=== PATIENT | female | born 1950 | race Caucasian/White ===

== ENCOUNTER 2016-08-26 17:03 | Inpatient (IN) | payer MEDICARE ==
--- NOTE | ~2016-08-26 | PUL ---
[address] [address] NAME: ROXANNE ORNELAS DECEMBER : 52 STATUS : DIS IN PAT#: [id number] AGE: 65 ADM/REG DATE : 08/26/16 MR#: [id number] REPORT SERV DATE: 08/30/16 DICTATED BY: RAE JOHNSON DATE: 08/30/16 REPORT STATUS : Draft TRANSCRIBED BY: MODL DATE: 08/30/16 PULMONARY FUNCTION TEST DIAGNOSIS: COPD. RESULTS: 1. FEV1 of 0.85 L (39% of predicted). 2. FVC 1.94 L (68% of predicted). 3. FEV1/FVC ratio of 44%. IMPRESSION: There is severe obstructive ventilatory impairment. The forced vital capacity is reduced suggestive of restriction. PS/MODL Rae Johnson M.D. / [id number] CC: MD Cora Miranda, CYBER FORENSIC SPECIALIST
--- NOTE | ~2016-08-26 | DS ---
Discharge Summary [facility] [address] [place]. [address] NAME: ROXANNE ORNELAS DECEMBER : 52 STATUS : DIS IN PAT#: [id number] AGE: 65 ADM/REG DATE : 08/26/16 MR#: [id number] REPORT SERV DATE: 08/31/16 DICTATED BY: ROBIN NUNEZ DATE: 08/30/16 REPORT STATUS : Draft TRANSCRIBED BY: MODL DATE: 08/30/16 ADMISSION DATE: 08/26/2016 DISCHARGE DATE: 08/30/2016 CHIEF COMPLAINT ON ADMISSION: Shortness of breath. DISCHARGING DIAGNOSIS: Acute exacerbation of chronic obstructive pulmonary disease with chronic hypoxic respiratory failure, on nocturnal . She is on home O2, I guess. HISTORY OF PRESENT ILLNESS: Please see full H and P by Dr. Jean for details regarding initial presentation. HOSPITAL COURSE: 1. Acute exacerbation of COPD with chronic hypoxic respiratory failure, on nocturnal O2. The patient was admitted to the hospital, was started on initial antibiotics for possible pneumonia; however, imaging did not reveal any pneumonia. She was continued on respiratory regimen including steroids. She has improved to the point she is currently on room air during the day. She does have nocturnal oxygen at home, which was resumed. She will be on steroid taper at discharge and otherwise continue home respiratory regimen and follow up with outpatient primary care. 2. Tobacco abuse. The patient has been counseled on tobacco cessation. DISCHARGE MEDICATIONS: Guaifenesin with codeine p.r.n., guaifenesin 1200 mg p.o. b.i.d., steroid taper, fluoxetine 40 mg daily, Flonase p.r.n., Neurontin 300 mg twice a day, hydrocodone one tab 10/325 four times daily, lisinopril 10 mg daily, Singulair 10 mg daily, omeprazole 20 mg daily, recommend nicotine patch, Seroquel 300 mg at bedtime, Spiriva, Topamax 50 mg at bedtime, diclofenac topical, Breo Ellipta, Phenergan p.r.n., naproxen p.r.n., albuterol p.r.n., and Klonopin p.r.n. DISPOSITION: Home. Resume home oxygen. FOLLOWUP: With outpatient primary care. PERTINENT LABORATORY DATA: At time of discharge, white blood cell count 12.1, hemoglobin 10.8, platelet count of 482. BMP grossly unremarkable. Time spent on this discharge is less than 30 minutes. DNK/MODL Robin Nunez MD Discharge Summary [address] [address] NAME: ROXANNE ORNELAS DECEMBER : 52 STATUS : DIS IN PAT#: [id number] AGE: 65 ADM/REG DATE : 08/26/16 MR#: [id number] REPORT SERV DATE: 08/31/16 DICTATED BY: ROBIN NUNEZ DATE: 08/30/16 REPORT STATUS : Draft TRANSCRIBED BY: MODL DATE: 08/30/16 / [id number] CC: MD Cora Miranda, CUSTOMER PROGRAM MANAGER
--- NOTE | ~2016-08-26 | HP ---
History And Physical [id number] [place]. [address] NAME: ROXANNE ORNELAS DECEMBER : 52 STATUS : ADM IN [facility]#: [id number] AGE: 65 ADM/REG DATE : 08/26/16 MR#: [id number] REPORT SERV DATE: 08/27/16 DICTATED BY: TYRA JEAN DATE: 08/27/16 REPORT STATUS : Draft TRANSCRIBED BY: MODL DATE: 08/27/16 DATE OF ADMISSION: 08/26/2016 CHIEF COMPLAINT: Shortness of breath. HISTORY OF PRESENT ILLNESS: The patient is a 65-year-old female with past medical history of COPD, asthma, hypertension, colitis, reflux, C. diff, anxiety, depression, and O2 dependent but noncompliant who comes in for respiratory difficulties for approximately five days. Upon arrival, the patient was placed in medial on BiPAP with increased O2 requirements and tachypnea. The patient reports symptoms has been constant, moderate in severity, breathing, did not have any resulting chest pain or radiating of symptoms, but did have shortness of breath, wheezing, cough with sputum production. No fever, diarrhea, or chills. The patient does report that she has occasionally been taking her oxygen but not as she is supposed to, still currently smoking. Symptoms are worsened by exertion, relieved only by rest and oxygen. Symptoms have significantly improved after short period of BiPAP and has been able to come down to binasal cannula, but is still having productive cough, sputum. Symptoms also improved with Solu-Medrol breathing treatments. ADDITIONAL REVIEW OF SYSTEMS: A 10-point review of systems negative except that noted in HPI with: CONSTITUTIONAL: No fevers or chills. EYES: No eye pain or visual changes. ENT: No sore throat or congestion. NEURO: No headache or confusion. SKIN: No rashes or bruising. RESPIRATORY: Positive for shortness of breath, cough, sputum, and wheezing. CV: No chest pain or palpitations. GI: No nausea or vomiting. : No dysuria or hematuria. MUSCULOSKELETAL: No myalgias, arthralgias above baseline. ENDO: No fatigue or polyuria. HEME: No bleeding or bruising. IMMUNOLOGIC: No rhinorrhea. PSYCH: No anxiety or confusion. PAST MEDICAL HISTORY: As noted above with C. diff colitis, septicemia, hypertension, COPD, reflux, anxiety, depression, chronic pain, is O2 dependent, but noncompliant. SOCIAL HISTORY: Forty pack year smoking and still continues, rare alcohol, no illicits. SURGERIES: Appendectomy, hysterectomy, right wrist, pelvic laparotomies. ALLERGIES: NSAIDS. FAMILY HISTORY: Colon cancer, lung cancer, COPD. History And Physical [address] [place]. [address] NAME: ROXANNE ORNELAS DECEMBER : 52 STATUS : ADM IN [facility]#: [id number] AGE: 65 ADM/REG DATE : 08/26/16 MR#: [id number] REPORT SERV DATE: 08/27/16 DICTATED BY: TYRA JEAN DATE: 08/27/16 REPORT STATUS : Draft TRANSCRIBED BY: JEREMIAH DATE: 08/27/16 HOME MEDICATIONS: Ventolin, Klonopin, cyproheptadine, Voltaren, Prozac, Flonase, Breo Ellipta, Neurontin, [place], lisinopril, Singulair, Naprosyn, Prilosec, Phenergan, Seroquel, Spiriva, Topamax. PHYSICAL EXAMINATION: VITAL SIGNS: The patient's blood pressure 164/80 temperature 98.1, initial pulse 112 down to 90, respirations initially 35 down to 22, O2 requirements initially on BiPAP up to 6 mm, now down to by nasal cannula. GENERAL: Older than stated age, thin, frail, but now in only mild distress. EYES: No scleral icterus. EOMI. ENT: Nares patent. Tongue midline. RESPIRATORY: Rhonchi diffusely, wheezing diffusely with end-expiratory wheeze. Minimal accessory muscle use at this time. CHEST: Equal chest expansion. Increased AP diameter. CV: Tachycardic, but no rubs or gallops. No pedal edema. GI: Soft, nontender, nondistended. Bowel sounds positive. : Deferred. MUSCULOSKELETAL: Moves all extremities x4. SKIN: Warm and dry. LYMPH: No cervical or supraclavicular lymphadenopathy. HEME: No bleeding or bruising. NEURO: Alert and oriented. Moves all extremities x4. Symmetrical smile. PSYCH: Appropriate mood and affect, pleasant. LABORATORY DATA: Sodium 139, potassium 3.3, bicarb 22, BUN and creatinine 7 and 0.65, chloride 103, glucose 144, magnesium 2.0. LFTs within normal limits. Troponin negative. ABG: A pH 7.41, bicarb 22, pCO2 of 36, PO2 of 83. Portable chest, stable COPD changes, old granulomatous disease. BNP 13.3. WBC 20.4, H and H 12.1 and 37, platelets 596, INR 1.1. EKG: Rate 133, sinus tach with QTc of 480. ASSESSMENT AND PLAN: 1. Acute chronic obstructive pulmonary disease exacerbation with bronchitis. 2. Bronchitis. 3. Systemic inflammatory response syndrome. 4. Hypertension. 5. Anemia. 6. Noncompliance. 7. Clostridium difficile history. 8. Tobacco use. PLAN: 1. For acute COPD exacerbation, O2 DuoNeb, off BiPAP, and now on binasal cannula. Continue steroids, order set for COPD. The patient is supposed to be on O2 at home, but variable compliance educated again about stop smoking. 2. Bronchitis. Antibiotics started in the emergency room. We will change Levaquin to Rocephin and azithromycin due to history of Clostridium difficile. History And Physical [address] [address] NAME: ROXANNE ORNELAS DECEMBER : 52 STATUS : ADM IN [facility]#: [id number] AGE: 65 ADM/REG DATE : 08/26/16 MR#: [id number] REPORT SERV DATE: 08/27/16 DICTATED BY: TYRA JEAN DATE: 08/27/16 REPORT STATUS : Draft TRANSCRIBED BY: MODPadmini DATE: 08/27/16 3. SIRS. We will check procalcitonin sputum, was tachycardic, tachypneic, and does have leukocytosis present. All present on arrival. 4. Hypertension. Continue home medications. 5. Anemia. Monitor, possibly secondary to Naprosyn, monitor next CBC. 6. Noncompliance. Discussed compliance with oxygen and stopping tobacco use. 7. C. diff. No acute diarrhea. Tobacco use and nicotine patch, discussed cessation. All questions answered of the patient at bedside. Guarded prognosis due to presenting illness. DDN/MODL Tyra Jean MD / [id number] CC: MD Cora Sandoval, [employer] JOURNALIST
[2016-08-26 16:16] LABS: BASOPHILS 0.2 %; BASOPHILS ABSOLUTE 0.04 10/3/uL (0.0-0.16); EOSINOPHILS 0 %; EOSINOPHILS ABSOLUTE 0.01 10/3/uL (0.0-0.53); ER CBC TAT 0 Hrs 09 Mins; HEMOGLOBIN 12.1 g/dL (12.0-16.0); IMMATURE GRANULOCYTES 0.3 %; IMMATURE GRANULOCYTES ABSOLUTE 0.06 10/3/uL (0.0-0.11); LYMPHOCYTES 6.5 %; LYMPHOCYTES ABSOLUTE 1.33 10/3/uL (0.67-4.30); MANUAL DIFF NO %; MEAN CORPUS HGB CONC 32.7 g/dL (32.0-36.0); MEAN CORPUSCULAR HEMOGLOB 27.9 pg (26.0-34.0); MEAN CORPUSCULAR VOLUME 85.5 fL (80-100); MEAN PLATELET VOLUME 9.3 fL (9.2-13.0); MONOCYTES ABSOLUTE 1.22 10/3/uL (0.21-1.20); NEUTROPHILS ABSOLUTE 17.75 10/3/uL (2.02-8.40); PLATELET COUNT 596 10/3/uL (150-400); RBC DISTRIBUTION WIDTH 13.2 % (12.0-16.0); RED CELL COUNT 4.33 10/6/uL (4.0-5.6); WHITE BLOOD CELLS 20.4 10/3/uL (4.5-10.5)
[2016-08-26 16:27] LABS: INTERNATIONAL NORMAL RATI 1.1 UNITS (-); PARTIAL THROMBO TIME 33.4 SEC (22.5-37.2); PROTIME (NOT ORD) 14.4 SEC (12.0-14.5)
[2016-08-26 16:33] LABS: BUN (BLOOD UREA NITROGEN) 7 MG/DL (6-23); CALCIUM, SERUM 9.1 MG/DL (8.5-10.4); CHEST PAIN PROFILE TAT 0 Hrs 26 Mins; CHLORIDE, SERUM 103 MMOL/L (96-112); CO2 (CARBON DIOXIDE) 22 MMOL/L (24-34); CREATININE 0.65 MG/DL (0.55-1.02); GFR AFRICAN AMERICAN 109 ML/MIN (>=60); GFR NON AFRICAN AMERICAN 94 ML/MIN (>=60); POTASSIUM, SERUM 3.3 MMOL/L (3.5-5.3); SODIUM, SERUM 139 MMOL/L (135-148); TROPONIN I <0.02 NG/ML (<0.05)
[2016-08-26 16:34] LABS: GLUCOSE, SERUM 144 MG/DL (60-99)
[~2016-08-26 17:03] MED LIST: ALEVE220 MG PO; ASABAYER PO; ASCRIPTIN PO; BREO ELLIPTA 21 EACH INH; BROVANA15 MCG INH; CEFT5 PO; CYPROHEPTAD4 MG PO; DALIRESP500 MCG PO; DULERA PO; FOSAMAX70 MG PO; HUMI PO; IMOD PO; INHALER; KLONO1 PO; KLONO5 PO; KLOR-CON M2020 MEQ PO; LEVAQUIN750 MG PO; LORTAB10 PO; M-END DM PO; MSCONT15 PO; NASONEX NAS; NEUR100 PO; NEUR300 PO; NEXIUM40 PO; NICODERM C21 MG/241 TOP; NORCO1 TAB PO; P20 PO; PR25 PO; PRILO PO; PRIN10 PO; PRIN20 PO; PRIN5 PO; PROTONIX PO; PROVENTSOL INH; PROZAC40 MG PO; RANITIDINE300 MG PO; RESTORIL30 MG PO; SEROQUEL1C PO; SEROQUEL200 MG PO; SEROQUEL25 PO; SEROQUEL50 MG PO; SINGULAIR1 PO; SPIRIVA INH; SPIRIVA RESPIMAT INH; SUCR PO; SYMBICORT 160/41 INH INH; TAMBOCOR PO; TOPAMAX50 MG PO; VENTOLIN HFA INH; VOLT75 PO; VOLTAREN1 % TOP; ZANTAC300 MG PO; ZYRTEC ALLGY10 MG PO
[2016-08-26] MEDS ORDERED: VENTOLIN HFA INH (17:08)
[2016-08-26] MEDS ORDERED: CYPROHEPTAD4 MG PO (17:08)
[2016-08-26] MEDS ORDERED: PROZAC40 MG PO (17:09)
[2016-08-26] MEDS ORDERED: VOLTAREN1 % TOP (17:09)
[2016-08-26] MEDS ORDERED: BREO ELLIPTA 21 EACH INH (17:09)
[2016-08-26] MEDS ORDERED: NORCO1 TAB PO (17:10)
[2016-08-26] MEDS ORDERED: NEUR300 PO (17:10)
[2016-08-26] MEDS ORDERED: PR25 PO (17:10)
[2016-08-26] MEDS ORDERED: ZESTRIL10 MG PO (17:10)
[2016-08-26] MEDS ORDERED: TOPAMAX50 MG PO (17:11)
[2016-08-26] MEDS ORDERED: SEROQUEL200 MG PO (17:11)
[2016-08-26] MEDS ORDERED: PRILO PO (17:11)
[2016-08-26] MEDS ORDERED: SPIRIVA (17:11)
[2016-08-26] MEDS ORDERED: SINGULAIR1 PO (17:11)
[2016-08-26] MEDS ORDERED: NAP500 PO (17:12)
[2016-08-26] MEDS ORDERED: FLONASE NAS (17:12)
[2016-08-26] MEDS ORDERED: KLONO1 PO (17:13)
[2016-08-26 17:14] LABS: ALLENS TEST Pos; BE (BASE EXCESS) -2.2 MEQ/L (0 +/- 2.5); DEVICE NC; HEMOBLOGIN CONTENT 12.3 G/DL (12-16); INSTRUMENT SERIAL # 8087; METHEMOGLOBIN 0.1 % (0-3); O2 CONTENT 16.6 VOL% (18-24); OPERATOR ID 32214; PCO2 (CO2 TENSION) 36 MMHG (35-45); PO2 (O2 TENSION) 83 MMHG (79-93); SAMPLE Arterial; pH 7.41 (7.37-7.43)
[2016-08-26 20:58] LABS: ALBUMIN 3.2 G/DL (3.5-5.0); SGPT(ALT) 24 U/L (5-65); TOTAL BILIRUBIN 0.2 MG/DL (0-1.2)
[2016-08-26 21:00] LABS: A/G RATIO 0.7 (0.7-1.9); ALKALINE PHOSPHATASE 116 U/L (45-117); GLOBULIN 4.8 G/DL (2.5-4.1); SGOT(AST) 20 U/L (5-40)
[2016-08-27 01:03] LABS: INFLUENZA A SCREEN NEGATIVE (NEGATIVE); INFLUENZA B SCREEN NEGATIVE (NEGATIVE)
[2016-08-27 07:41] LABS: BASOPHILS 0.1 %; BASOPHILS ABSOLUTE 0.01 10/3/uL (0.0-0.16); EOSINOPHILS 0 %; HEMOGLOBIN 10.7 g/dL (12.0-16.0); IMMATURE GRANULOCYTES 0.3 %; IMMATURE GRANULOCYTES ABSOLUTE 0.05 10/3/uL (0.0-0.11); LYMPHOCYTES 8.7 %; LYMPHOCYTES ABSOLUTE 1.25 10/3/uL (0.67-4.30); MEAN CORPUS HGB CONC 32.5 g/dL (32.0-36.0); MEAN CORPUSCULAR HEMOGLOB 27.2 pg (26.0-34.0); MEAN CORPUSCULAR VOLUME 83.7 fL (80-100); MEAN PLATELET VOLUME 9.5 fL (9.2-13.0); MONOCYTES 2.5 %; MONOCYTES ABSOLUTE 0.36 10/3/uL (0.21-1.20); NEUTROPHILS 88.4 %; NEUTROPHILS ABSOLUTE 12.71 10/3/uL (2.02-8.40); PLATELET COUNT 537 10/3/uL (150-400); RBC DISTRIBUTION WIDTH 13.5 % (12.0-16.0); RED CELL COUNT 3.93 10/6/uL (4.0-5.6); WHITE BLOOD CELLS 14.4 10/3/uL (4.5-10.5)
[2016-08-27 07:42] LABS: HEMATOCRIT 32.9 % (36.0-48.0); MANUAL DIFF NO %
[2016-08-27 07:53] LABS: BUN (BLOOD UREA NITROGEN) 9 MG/DL (6-23); CALCIUM, SERUM 8.8 MG/DL (8.5-10.4); CHLORIDE, SERUM 109 MMOL/L (96-112); CO2 (CARBON DIOXIDE) 21 MMOL/L (24-34); CREATININE 0.51 MG/DL (0.55-1.02); GFR AFRICAN AMERICAN 118 ML/MIN (>=60); GFR NON AFRICAN AMERICAN 102 ML/MIN (>=60); GLUCOSE, SERUM 129 MG/DL (60-99); POTASSIUM, SERUM 4.6 MMOL/L (3.5-5.3); SODIUM, SERUM 141 MMOL/L (135-148); TROPONIN I <0.02 NG/ML (<0.05)
[2016-08-27 14:20] LABS: ASCORBIC ACID (UR NOT ORDER) NEG (NEG); BILIRUBIN, URINE NEGATIVE (NEG); KETONE, URINE NEGATIVE (NEG); LEUKOCYTE ESTERASE(NOT OR NEG (NEG); WBC (NOT ORDERED) (RFLEX) < 1 (0-5)
[2016-08-28 04:47] LABS: INSTRUMENT SERIAL # 8083
[2016-08-28 04:48] LABS: BE (BASE EXCESS) -1.1 MEQ/L (0 +/- 2.5); CARBOXYHEMOGLOBIN 0.2 % (0-3); DEVICE NRB; HCO3 (ACTUAL BICARBONATE) 24.5 MEQ/L (23-27); HEMOBLOGIN CONTENT 12.9 G/DL (12-16); METHEMOGLOBIN 0.3 % (0-3); OPERATOR ID 30013; PCO2 (CO2 TENSION) 45 MMHG (35-45); PO2 (O2 TENSION) 131 MMHG (79-93); SAMPLE Arterial; pH 7.36 (7.37-7.43)
[2016-08-28 07:34] LABS: BASOPHILS 0.2 %; BASOPHILS ABSOLUTE 0.03 10/3/uL (0.0-0.16); EOSINOPHILS 0.1 %; EOSINOPHILS ABSOLUTE 0.02 10/3/uL (0.0-0.53); HEMATOCRIT 33.5 % (36.0-48.0); HEMOGLOBIN 10.5 g/dL (12.0-16.0); IMMATURE GRANULOCYTES 0.5 %; IMMATURE GRANULOCYTES ABSOLUTE 0.09 10/3/uL (0.0-0.11); MEAN CORPUS HGB CONC 31.3 g/dL (32.0-36.0); MEAN CORPUSCULAR HEMOGLOB 27.1 pg (26.0-34.0); MEAN PLATELET VOLUME 9.3 fL (9.2-13.0); MONOCYTES 6.1 %; MONOCYTES ABSOLUTE 1.06 10/3/uL (0.21-1.20); NEUTROPHILS 70.1 %; NEUTROPHILS ABSOLUTE 12.17 10/3/uL (2.02-8.40); PLATELET COUNT 543 10/3/uL (150-400); RBC DISTRIBUTION WIDTH 13.6 % (12.0-16.0); RED CELL COUNT 3.88 10/6/uL (4.0-5.6); WHITE BLOOD CELLS 17.4 10/3/uL (4.5-10.5)
[2016-08-28 07:44] LABS: MANUAL DIFF NO %; MEAN CORPUSCULAR VOLUME 86.3 fL (80-100)
[2016-08-28 07:49] LABS: CALCIUM, SERUM 8.9 MG/DL (8.5-10.4); CHLORIDE, SERUM 105 MMOL/L (96-112); CO2 (CARBON DIOXIDE) 25 MMOL/L (24-34); CREATININE 0.78 MG/DL (0.55-1.02); GFR AFRICAN AMERICAN 93 ML/MIN (>=60); GFR NON AFRICAN AMERICAN 80 ML/MIN (>=60); POTASSIUM, SERUM 3.9 MMOL/L (3.5-5.3); SODIUM, SERUM 141 MMOL/L (135-148)
[2016-08-28 07:50] LABS: BUN (BLOOD UREA NITROGEN) 16 MG/DL (6-23); GLUCOSE, SERUM 74 MG/DL (60-99)
[2016-08-29 05:28] LABS: BASOPHILS 0.3 %; BASOPHILS ABSOLUTE 0.03 10/3/uL (0.0-0.16); EOSINOPHILS 0.5 %; EOSINOPHILS ABSOLUTE 0.05 10/3/uL (0.0-0.53); HEMATOCRIT 32.9 % (36.0-48.0); HEMOGLOBIN 10.2 g/dL (12.0-16.0); IMMATURE GRANULOCYTES 0.9 %; LYMPHOCYTES 29.7 %; LYMPHOCYTES ABSOLUTE 3.29 10/3/uL (0.67-4.30); MEAN CORPUSCULAR HEMOGLOB 26.4 pg (26.0-34.0); MEAN CORPUSCULAR VOLUME 85.2 fL (80-100); MEAN PLATELET VOLUME 8.9 fL (9.2-13.0); MONOCYTES 8.7 %; MONOCYTES ABSOLUTE 0.96 10/3/uL (0.21-1.20); NEUTROPHILS 59.9 %; NEUTROPHILS ABSOLUTE 6.65 10/3/uL (2.02-8.40); PLATELET COUNT 508 10/3/uL (150-400); RBC DISTRIBUTION WIDTH 13.7 % (12.0-16.0); RED CELL COUNT 3.86 10/6/uL (4.0-5.6); WHITE BLOOD CELLS 11.1 10/3/uL (4.5-10.5)
[2016-08-29 05:30] LABS: MANUAL DIFF NO %
[2016-08-29 05:38] LABS: BUN (BLOOD UREA NITROGEN) 14 MG/DL (6-23); CALCIUM, SERUM 8.5 MG/DL (8.5-10.4); CHLORIDE, SERUM 105 MMOL/L (96-112); CO2 (CARBON DIOXIDE) 27 MMOL/L (24-34); CREATININE 0.83 MG/DL (0.55-1.02); GFR AFRICAN AMERICAN 86 ML/MIN (>=60); GFR NON AFRICAN AMERICAN 75 ML/MIN (>=60); POTASSIUM, SERUM 3.6 MMOL/L (3.5-5.3); SODIUM, SERUM 143 MMOL/L (135-148)
[2016-08-29 05:39] LABS: GLUCOSE, SERUM 100 MG/DL (60-99)
[2016-08-30 06:29] LABS: BASOPHILS 0.3 %; BASOPHILS ABSOLUTE 0.04 10/3/uL (0.0-0.16); EOSINOPHILS 0.7 %; EOSINOPHILS ABSOLUTE 0.09 10/3/uL (0.0-0.53); HEMATOCRIT 34.4 % (36.0-48.0); HEMOGLOBIN 10.8 g/dL (12.0-16.0); IMMATURE GRANULOCYTES 1.4 %; IMMATURE GRANULOCYTES ABSOLUTE 0.17 10/3/uL (0.0-0.11); LYMPHOCYTES 27.1 %; LYMPHOCYTES ABSOLUTE 3.27 10/3/uL (0.67-4.30); MEAN CORPUS HGB CONC 31.4 g/dL (32.0-36.0); MEAN CORPUSCULAR HEMOGLOB 27.3 pg (26.0-34.0); MEAN CORPUSCULAR VOLUME 86.9 fL (80-100); MEAN PLATELET VOLUME 8.9 fL (9.2-13.0); MONOCYTES 6.5 %; MONOCYTES ABSOLUTE 0.78 10/3/uL (0.21-1.20); PLATELET COUNT 482 10/3/uL (150-400); RBC DISTRIBUTION WIDTH 13.4 % (12.0-16.0); RED CELL COUNT 3.96 10/6/uL (4.0-5.6); WHITE BLOOD CELLS 12.1 10/3/uL (4.5-10.5)
[2016-08-30 06:30] LABS: MANUAL DIFF NO %
[2016-08-30 06:42] LABS: BUN (BLOOD UREA NITROGEN) 14 MG/DL (6-23); CALCIUM, SERUM 8.7 MG/DL (8.5-10.4); CHLORIDE, SERUM 103 MMOL/L (96-112); CO2 (CARBON DIOXIDE) 29 MMOL/L (24-34); CREATININE 0.74 MG/DL (0.55-1.02); GFR AFRICAN AMERICAN 99 ML/MIN (>=60); GFR NON AFRICAN AMERICAN 86 ML/MIN (>=60); GLUCOSE, SERUM 89 MG/DL (60-99); POTASSIUM, SERUM 3.5 MMOL/L (3.5-5.3); SODIUM, SERUM 141 MMOL/L (135-148)
[2016-08-30] MEDS ORDERED: P10 (10:28)
[2016-08-30] MEDS ORDERED: MUCINEX1200 MG PO (10:29)
[2016-08-30] MEDS ORDERED: CHERATUSSIN PO (10:29)
[2016-08-30] MEDS ORDERED: HABIT21 TOP (10:38)
== END 2016-08-30 15:08 | disposition home or self-care (01) | DRG 191 ==
LOC: ER 17:03 → 4SO 18:31
PROVIDERS: Emergency Medicine; Student in an Organized Health Care Education/Training Program
PROC: 5A09357 Assistance with Respiratory Ventilation, Less than 24 Consecutive Hours, Continuous Positive Airway Pressure (ICD-10-PCS; principal; 2016-08-26)
DX: J44.1 Chronic obstructive pulmonary disease with (acute) exacerbation (principal); J96.11 Chronic respiratory failure with hypoxia; R65.10 Systemic inflammatory response syndrome (SIRS) of non-infectious origin without acute organ dysfunction; Z99.81 Dependence on supplemental oxygen; I10 Essential (primary) hypertension; K21.9 Gastro-esophageal reflux disease without esophagitis; F41.9 Anxiety disorder, unspecified; J44.0 Chronic obstructive pulmonary disease with (acute) lower respiratory infection; F32.9 Major depressive disorder, single episode, unspecified; F17.200 Nicotine dependence, unspecified, uncomplicated; Z91.19 Patient's noncompliance with other medical treatment and regimen; G89.29 Other chronic pain; Z88.8 Allergy status to other drugs, medicaments and biological substances; Z79.891 Long term (current) use of opiate analgesic; D64.9 Anemia, unspecified; J20.9 Acute bronchitis, unspecified
CPT/HCPCS: 36600; 71010; 80048; 80053; 81001; 82272; 82805; 83735; 83880; 84484; 85025; 85610; 85730; 87040; 87070; 87150; 87205; 87493; 87493-59; 87804; 93005; 94010; 94640; 96365; 99291; A9270-GY; J0456; J1956; J2920